=== PATIENT | female | born 1975 | race Caucasian/White ===

== ENCOUNTER 2017-08-21 18:44 | Emergency (ER) | payer OTHER ==
[~2017-08-21] VITALS: Ht 157.5 cm; Wt 64.4 kg
[2017-08-21 19:00] VITALS: BP 121/77
[2017-08-21] MEDS ORDERED: Tetanus/Diptheria/Pertussis Vaccine 0.5ml Syr IM ONE (19:00)
[2017-08-21] MEDS ORDERED: Norco 5mg/325mg tab ORAL ONE (19:00)
--- NOTE | 2017-08-21 19:36 | Emergency Room Report ---
History of Present Illness General Chief Complaint: Laceration Source: Patient Present Illness HPI 32-year-old female presents to the emergency department complaining of laceration to the left thenar aspect of her hand. Describes 5/10 in severity localized pain, exacerbated with touch. Patient states laceration was sustained at approximately 3:30 this afternoon she was lifting a garbage bag out of her garbage can and a large broken piece of glass slid by her hand and cut her. Patient states that bleeding. However after she moves her hands sometimes it becomes bleeding again. She does not know when her last tetanus vaccination was. Denies CP, Palpitations, LOC, AMS, dizziness, Changes in Vision, Sensation , paresthesias, or a sudden severe headache. Allergies: Coded Allergies: PENICILLINS (Verified Allergy, Unknown, 08/21/17) Patient History Past Medical History: see triage record Past Surgical History: none Pertinent Family History: none Reviewed Nursing Documentation: PMH: Agreed; PSxH: Agreed Nursing Documentation-PMH Past Medical History: No Stated History Review of Systems All Other Systems: negative except mentioned in HPI Physical Exam Vital Signs Date Time Temp Pulse Resp B/P (MAP) Pulse Ox O2 Delivery O2 Flow Rate FiO2 08/21/17 18:50 97.9 85 20 121/77 98 Room Air 97.9 Sp02 EP Interpretation: reviewed, normal General Appearance: no apparent distress, alert, GCS 15, non-toxic Head: normocephalic, atraumatic ENT: hearing grossly normal, normal voice Neck: full range of motion Respiratory: lungs clear, normal breath sounds, speaking full sentences Cardiovascular #1: regular rate, rhythm, normal capillary refill Musculoskeletal: back normal, gait/station normal, normal range of motion, non- tender Neurologic: alert, oriented x3, responsive, motor strength/tone normal, sensory intact, speech normal, grossly normal Psychiatric: judgement/insight normal Skin: normal color, no rash, warm/dry, well hydrated, laceration - 3cm flap laceration to the thenar aspect of the left thumb. stellate boarders. no obvious fb noted. Lymphatic: no adenopathy Procedures Laceration/Wound Repair Laceration/Wound Repair : Consent: Verbal Wound Location: upper extremity - left hand Wound's Depth, Shape: flap, stellate Wound Length (cm): 3 Wound Explored: clean Irrigated w/ Saline (ccs): 500 Anesthesia: Lidocaine w/ Epi Volume Anesthetic (ccs): 2 Wound Repaired With: sutures Suture Size/Type: 6:0 Number of Sutures: 2 Layer Closure?: No Sterile Dressing Applied?: Yes Splint Applied?: Yes Type of Splint Applied: Finger splint to left thumb Sling Applied?: No Patient Tolerated: Well Complications: None Medical Decision Making PA Attestation Dr. France is my supervising Physician whom patient management has been discussed with. Diagnostic Impression: Primary Impression: Laceration ER Course 32-year-old female presents to the emergency department complaining of laceration to the left thenar aspect of her hand. Describes 5/10 in severity localized pain, exacerbated with touch. Patient states laceration was sustained at approximately 3:30 this afternoon she was lifting a garbage bag out of her garbage can and a large broken piece of glass slid by her hand and cut her. Patient states that bleeding. However after she moves her hands sometimes it becomes bleeding again. She does not know when her last tetanus vaccination was. Denies CP, Palpitations, LOC, AMS, dizziness, Changes in Vision, Sensation , paresthesias, or a sudden severe headache. Ddx considered but are not limited to laceration, tendon injury, cellulitis, amputation Vital signs: are WNL, pt. is afebrile H&PE are most consistent with: 3cm flap laceration to the thenar aspect of the left thumb. stellate boarders. no obvious fb noted. ORDERS: none required at this time, the diagnosis is clinical ED INTERVENTIONS: -Tetanus vaccine was administered as pt. vaccination status was unknown. --Discussed with patient: That we make every effort to approximate the laceration as best as we can so that scarring will be as cosmetically pleasing as possible with our limited cosmetic skill set in the Emergency dept. Regardless of our best efforts there will be scarring after laceration repair. The extent of scarring is unknown at this time. - The wound was copiously irrigated with normal saline, and explored for foreign body for which no FB was found. - pt. is anesthetized with 1%lidocaine w. epi. - The wound was approximated and closed using 2 interrupted 6.0 Ethilon sutures. -Bacitracin and sterile dressing is applied. -Finger Splint applied by mechanical assembly technician. Pt. remains neurovascularly intact. DISCHARGE: At this time pt. is stable for d/c to home. Will provide printed patient care instructions, and any necessary prescriptions. Care plan and follow up instructions have been discussed with the patient prior to discharge. Last Vital Signs Date Time Temp Pulse Resp B/P (MAP) Pulse Ox O2 Delivery O2 Flow Rate FiO2 08/21/17 19:08 97.9 08/21/17 19:00 20 121/77 98 Room Air 08/21/17 18:50 85 Disposition: HOME, SELF-CARE Condition: Stable Scripts Bacitracin/Polymyxin B Sulfate (BACITRACIN-POLYMYXIN OINTMENT) 28.35 Gm Oint...g. 1 APPLIC TP BID, #28.3 GM Prov: Yazmin Bryant 08/21/17 Cephalexin* (KEFLEX*) 500 Mg Capsule 500 MG ORAL EVERY 12 HOURS for 7 Days, #14 CAP 0 Refills Prov: Yazmin Bryant 08/21/17 Referrals: [facility],REFERRING (PCP) Patient Instructions: Laceration Care, Adult Additional Instructions: Take medications as directed. Follow up with a Primary Care Provider in 3-5 days, even if your symptoms have resolved. --Please review list of primary care clinics, if you do not already have a primary care provider Return sooner to ED if new symptoms occur, or current symptoms become worse. - Please note that this Emergency Department Report was dictated using itembase[employer] intern technology software, occasionally this can lead to erroneous entry secondary to interpretation by the dictation equipment. Yazmin Bryant Aug 21, 2017 19:36
[2017-08-21] MEDS ORDERED: BACITRACIN-P28.35 GM TP ×2 (19:39→20:04)
[2017-08-21] MEDS ORDERED: CEPHALEXIN500 MG ORAL ×2 (19:39→20:04)
[2017-08-21] MEDS ORDERED: Bacitracin Oint UD TOPIC ONE (20:15)
[2017-08-21] MEDS ORDERED: Cephalexin 500mg cap ORAL ONE (20:15)
[2017-08-21 20:26] VITALS: BP 121/77
== END 2017-08-21 20:27 | disposition home or self-care (01) ==
LOC: EMR 19:21
DX: S61.012A Laceration without foreign body of left thumb without damage to nail, initial encounter (principal); W25.XXXA Contact with sharp glass, initial encounter; Y93.9 Activity, unspecified; Y92.9 Unspecified place or not applicable; Z88.0 Allergy status to penicillin; Z23 Encounter for immunization
CPT/HCPCS: 12002; 90471; 90715; 99284; Z7502

== ENCOUNTER 2017-08-30 12:32 | Emergency (ER) | payer OTHER ==
[~2017-08-30] VITALS: Ht 160 cm; Wt 65.8 kg
[~2017-08-30 12:32] MED LIST: BACITRACIN-P28.35 GM TP; CEPHALEXIN500 MG ORAL
--- NOTE | 2017-08-30 13:04 | Emergency Room Report ---
History of Present Illness General Chief Complaint: Wound Recheck/Suture Removal Source: Patient Present Illness HPI 42 yo female patient presents to ER for wound check. Patient had sutures placed in left palm 1 week ago at base of thumb. Reports took abx as instructed. Reports no new or worsening of symptoms. Denies pain with movement. Denies bleeding from wound. Patient reports she is right hand dominant. Denies chest pain, fever, SOB. Allergies: Coded Allergies: PENICILLINS (Verified Allergy, Unknown, 08/21/17) Patient History Past Medical History: see triage record Last Menstrual Period: Unk date Reviewed Nursing Documentation: PMH: Agreed; PSxH: Agreed Nursing Documentation-PMH Past Medical History: No Stated History Review of Systems All Other Systems: negative except mentioned in HPI Physical Exam Vital Signs Date Time Temp Pulse Resp B/P (MAP) Pulse Ox O2 Delivery O2 Flow Rate FiO2 08/30/17 12:51 98.2 80 17 113/74 100 Room Air 98.2 Sp02 EP Interpretation: reviewed, normal General Appearance: well appearing, no apparent distress, alert, GCS 15, non- toxic Head: normocephalic, atraumatic Eyes: bilateral eye normal inspection, bilateral eye PERRL Respiratory: lungs clear, normal breath sounds, no rhonchi, no respiratory distress, no accessory muscle use, no wheezing, speaking full sentences Cardiovascular #1: regular rate, rhythm, no edema Cardiovascular #2: 2+ radial (R), 2+ radial (L) Musculoskeletal: back normal, digits/nails normal, gait/station normal, normal range of motion, non-tender, other - no fusiform swelling, no pain with extension, no TTP Neurologic: alert, oriented x3, responsive, motor strength/tone normal, sensory intact Psychiatric: mood/affect normal Skin: other - 3cm healed laceration, no erythema, scabbing, no drainage, no blood Lymphatic: no adenopathy Medical Decision Making PA Attestation Dr. Rojas is my supervising Physician whom patient management has been discussed with. Diagnostic Impression: Primary Impression: Encounter for removal of sutures ER Course Pt. presents to the ED requesting wound check of left palm. Ddx considered but are not limited to cellulitis, abscess, wound check. Negative for Kanavel signs, low suspicion for flexor tenosynovitis. Vital signs: are WNL, pt. is afebrile ORDERS: none required at this time. ED INTERVENTIONS: 2 sutures removed. Patient tolerated procedure well. Wound has no signs of infection., no erythema, no TTP, sensation is intact to light touch. Use Neosporin to prevent appearance of scar. DISCHARGE: Patient decline need for pain medication at this time. Patient instructed to continue with medications per initial ER provider instructions. At this time pt. is stable for d/c to home. Patient is resting comfortably, in no acute distress, non-toxic appearing. Will provide printed patient care instructions and any necessary prescriptions. Care plan and follow up instructions have been discussed with the patient prior to discharge. Patient instructed to follow-up with primary care provider for further treatment and referral. Patient questions asked and answered. Patient reports understanding and agreement to treatment plan. ER precautions given. Patient instructed to return to ER immediately for any new or worsening of symptoms including but not limited to fever, worsening of pain symptoms. Last Vital Signs Date Time Temp Pulse Resp B/P (MAP) Pulse Ox O2 Delivery O2 Flow Rate FiO2 08/30/17 12:51 98.2 80 17 113/74 100 Room Air 98.2 Disposition: HOME, SELF-CARE Condition: Stable Patient Instructions: Suture Removal, Care After, Wound Check Additional Instructions: Followup with primary care provider in 3 -5 days. Do not pick at scabs. Apply Neosporin to decrease appearance of scar. Take medications as directed. Patient questions asked and answered. ER precautions given, patient instructed to return to ER immediately for any new or worsening of symptoms. Florin Whaley Aug 30, 2017 13:04
[2017-08-30 13:21] VITALS: BP 113/74
== END 2017-08-30 13:21 | disposition home or self-care (01) ==
LOC: EMR 13:03
DX: S61.412D Laceration without foreign body of left hand, subsequent encounter (principal); X58.XXXD Exposure to other specified factors, subsequent encounter; Z88.0 Allergy status to penicillin; Z48.02 Encounter for removal of sutures
CPT/HCPCS: 99281